=== PATIENT | male | born 1980 | race Caucasian/White ===

== ENCOUNTER 2024-04-29 09:29 | Emergency (ER) | payer OTHER, SELFPAY ==
--- NOTE | 2024-04-29 09:30 | ED.URI ---
HPI - URI/Sore Throat General Chief Complaint: Upper Respiratory Infection Stated Complaint: Strep Symptoms Time Seen by Provider: 04/29/24 09:30 Source: patient Mode of arrival: ambulatory Limitations: no limitations History of Present Illness HPI Narrative: Cesar is a 44-year-old male patient presenting to the clinic today with complaints of possible strep throat. He reports symptoms started on Tuesday. Is have pain with swallowing and well as difficulty swallowing. Was able to swallow Mucinex and tylenol for his symptoms without issue. Feels as though his throat is swollen. States he has been drooling while sleeping. No fever or chills. No difficulty breathing. He is a former smoker MD elicited complaint: sore throat and nasal congestion Related Data Allergies Allergy/AdvReac Type Severity Reaction Status Date / Time acetaminophen (From [place]) AdvReac Mild Vomiting Verified 04/29/24 09:33 hydrocodone (From [place]) AdvReac Mild Vomiting Verified 04/29/24 09:33 Review of Systems Review of Systems: Pertinent positives per HPI. Patient denies any fever, chills, rash, headache, visual changes, dizziness, cough, shortness of breath, chest pain, palpitations, nausea, vomiting, diarrhea, constipation, abdominal pain, or any urinary issues. [facility] [place] Past Medical History Medical History Nicotine dependence, unspecified, in remission Family History Family History Father Hypertension Cerebrovascular accident Grandparent Carcinoma of colon Social History Social History Years smoked: 10 Smoking status: Former smoker Second hand tobacco smoke exposure: No Smoking end date: 09/23/08 Alcohol intake: never Substance use: never Substance use type: does not use Lack of Transportation: No Lack of Food: Never True Current Housing: I Have Housing Concerned About Future Housing: No Difficulty Paying Gas/Electric Bills: No Difficulty Paying for Meds: No Currently Unemployed: No Education: Trade/Vocational Certificate Difficulty w/ Childcare or Family Care: No Living arrangements: with family Occupation/Education: occupation Gender identity (if verbalized by the patient): Male Spiritual care concerns: No Comments At the time of my signature, I reviewed and agree with the nursing past medical, surgical, social, and family history. There is no relevant family history pertinent to the patient complaint. Exam Narrative: General: Well-developed, well nourished, in no apparent distress Head: Normocephalic, atraumatic Eyes: Pupils equally round and reactive to light bilaterally, EOM intact, sclera and conjunctive clear, no discharge, lids normal Ears: TMs intact and clear, ear canals clear, no drainage, grossly hearing normal. Nose: Nares patent, no discharge, no inflammation, no sinus tenderness. Mouth: Oral pharynx red with bilateral tonsillar enlargement without lesions or masses, good dentition, MMM. Neck: Supple, trachea midline, enlargement of anterior cervical nodes, no thyroid masses or goiter palpable. Cardio: Regular rate and rhythm, s1 and s2 normal, no murmur appreciated. Resp: Clear to auscultation bilaterally, no rhonchi, rales, wheezing or rubs Course Course Emergency Course: Portions of this record may have been created with voice recognition software. Level of Care: Express Care Visit Vital Signs Vital signs: Vital Signs Temperature 36.2 C L 04/29/24 09:38 Pulse Rate 98 04/29/24 09:38 Respiratory Rate 16 04/29/24 09:38 Blood Pressure 124/93 H 04/29/24 09:38 Pulse Oximetry 98 04/29/24 09:38 Temperature 36.2 C L 04/29/24 09:38 Pulse Rate 98 04/29/24 09:38 Respiratory Rate 16 04/29/24 09:38 Blood Pressure 124/93 H 04/29/24 09:38 Pulse Oximetry 98 04/29/24 09:38 Vital signs reviewed MDM - URI/Sore Throat MDM Narrative Medical decision making narrative: At the time of visit patient is resting comfortably on the exam table. Patient appears to be nontoxic. Labs: Strep test was obtained and negative in the clinic today. We will send strep for culture. Plan: I suspect patient has pharyngitis with anterior cervical lymphadenopathy. Patient reports as though he feels as though his throat is very swollen and having difficulty swallowing so I will go ahead and empirically treat with amoxicillin and prednisone. Supportive measures were discussed with the patient and they voiced understanding discharge instructions and agrees to treatment plan. Return precautions reviewed Differential Diagnosis Differential diagnosis: Likely upper respiratory infection, otitis media, sinusitis, viral infection, bronchitis, influenza, pharyngitis and other (COVID) Lab Data Labs: Lab Results 04/29/24 Range/Units 09:45 POC Grp A Strep Screen Negative (Negative) Discharge Plan Discharge Clinical Impression: Cervical lymphadenopathy Pharyngitis Qualifiers: Pharyngitis/tonsillitis etiology: unspecified etiology Qualified Code(s): J02.9 - Acute pharyngitis, unspecified Patient Disposition: Home, Self-Care Condition: Stable Instructions: Antibiotic Form, Pharyngitis (ED), Lymphadenopathy (ED) Additional Instructions: Strep test was negative in the clinic today. We will send strep culture. Take prescription medications only as prescribed-amoxicillin and prednisone Increase fluids and stay well hydrated Tylenol/motrin for pain/fever Flonase and OTC antihistamines as directed Vicks vapor rub to open sinuses Sinus rinses for congestion Cepacol spray, cough drops, throat lozenges, warm tea with honey/lemon, gargle salt water to soothe throat BRAT diet for diarrhea Clear liquids x 24 hours then advance as tolerated for nausea/vomiting Go to the ED if you develop a worsening in your condition- high fever not controlled by Tylenol or Motrin, dehydration, weakness, lethargy, shortness of breath, or chest pain. Follow up with your PCP in 3-5 days if symptoms persist. Patient Language: Norwegian Prescriptions: New amoxicillin 875 mg tablet 875 mg PO Q12H 10 Days Qty: 20 0RF prednisone 20 mg tablet 40 mg PO DAILY 5 Days Qty: 10 0RF No Action albuterol sulfate 90 mcg/actuation HFA aerosol inhaler 2 puff inhalation Q4H PRN (Reason: shortness of breath or wheezing) Qty: 6.7 0RF Follow-up/Referrals: UNKNOWN,DOCTOR [Non-Staff] - Time of Disposition: 09:45 Quality NIHSS Nursing Documentation ED NIHSS nursing documentation: reviewed/agree
[2024-04-29 09:38] VITALS: BP 124/93; PULSE 98; RESP 16; TEMP 36.2; O2SAT 98
[2024-04-29 09:47] LABS: EDSTREPNEGPOS1 Negative (Negative)
== END 2024-04-29 09:49 | disposition home or self-care (01) ==
PROVIDERS: Emergency Provider Nurse Practitioner Family
DX: R59.0 Localized enlarged lymph nodes (principal); J02.9 Acute pharyngitis, unspecified; Z87.891 Personal history of nicotine dependence
CPT/HCPCS: 87081; 87880; 99213; G0463